=== PATIENT | male | born 1945 | race Caucasian/White ===

== ENCOUNTER 2016-03-07 12:49 | Day surgery (SDC) | payer MEDICARE, OTHER ==
[~2016-03-07] VITALS: Ht 185.4 cm; Wt 96.4 kg
[~2016-03-07 12:49] MED LIST: ALEVE 220MG220 MG PO; ASPIRIN 32325 MG/TAB PO; ASPIRIN E.C. 8181 MG PO; CALCIUM/MAGNESI1 T17 PO; COREG 3.123.125 MG/T PO; FLOMAX0.4 MG PO; LYRICA 25MG CAP25 MG PO; MEDROL 4MG DOSPA4 MG PO; NITROSTAT0.4 MG/TAB SL; NORCO 325 MG-51 TAB PO; PERCOCET 5/321 UDTAB PO; PRILOSEC 20MG20 MG PO; QUESTRAN4 GM/9 GM PO; SYNTHROID0.075 MG/T PO; TIROSINT100 MC1 PO; ULTRAM 50MG TAB50 MG PO; ULTRAM50 MG PO; VALIUM 5MG T5 MG/TAB PO; VICODIN PO; VITAMIN C BUFF500 MG PO; VITAMIN C500 MG PO
[2016-03-07 13:07] VITALS: BP 140/93; PULSE 81; TEMP 99
[2016-03-07] MEDS ORDERED: SYNTHROID0.125 MG/T PO (13:38)
[2016-03-07] MEDS ORDERED: COREG 6.256.25 MG/TA PO (13:38)
[2016-03-07] MEDS ORDERED: PROBIOTIC FORMU1 CAP PO (13:39)
[2016-03-07] MEDS ORDERED: LYRICA 50MG CAP50 MG PO (13:39)
[2016-03-07] MEDS ORDERED: VITAMIN C500 MG PO (13:39)
[2016-03-07] MEDS ORDERED: ALEVE 220MG220 MG PO (13:40)
[2016-03-07] MEDS ORDERED: ZYRTEC 10MG10 MG PO (13:40)
[2016-03-07 15:30] VITALS: BP 121/78; PULSE 85; TEMP 98.3
[2016-03-07 15:45] VITALS: BP 121/80; PULSE 73
[2016-03-07 16:00] VITALS: BP 105/75; PULSE 71
[2016-03-07 16:15] VITALS: BP 110/70; PULSE 72
== END 2016-03-07 16:32 | disposition home or self-care (01) ==
LOC: SDCO 12:49
DX: Z86.010 Personal history of colon polyps (principal); K21.9 Gastro-esophageal reflux disease without esophagitis; R19.7 Diarrhea, unspecified; K57.30 Diverticulosis of large intestine without perforation or abscess without bleeding; R11.0 Nausea
CPT/HCPCS: OP; J2250; J3010; J7030

== ENCOUNTER 2018-04-02 13:16 | Outpatient (RCR) | payer MEDICARE, OTHER ==
[~2018-04-02 13:16] MED LIST changes: +COREG 6.256.25 MG/TA PO; +LYRICA 50MG CAP50 MG PO; +PROBIOTIC FORMU1 CAP PO; +SYNTHROID0.125 MG/T PO; +ZYRTEC 10MG10 MG PO
[2018-04-30] MEDS ORDERED: QUESTRAN4 GM/9 GM PO (14:47)
[2018-04-30] MEDS ORDERED: CALCIUM-MAGNES1 EAC1 PO (14:49)
[2018-06-05] MEDS ORDERED: COREG 3.123.125 MG/T PO (10:44)
[2018-06-05] MEDS ORDERED: SYNTHROID0.137 MG PO (10:45)
== END 2018-06-10 10:25 | disposition home or self-care (01) ==
LOC: MKS.ESL.PT 13:16
DX: M54.5 Low back pain (principal)

== ENCOUNTER → 2018-04-23 | Outpatient (CLI) | payer MEDICARE, OTHER | LOC: COL.RAD 09:30 | DX: Z01.812 Encounter for preprocedural laboratory examination (principal); N40.0 Benign prostatic hyperplasia without lower urinary tract symptoms; R68.89 Other general symptoms and signs; R91.8 Other nonspecific abnormal finding of lung field; K57.30 Diverticulosis of large intestine without perforation or abscess without bleeding; Z90.49 Acquired absence of other specified parts of digestive tract | CPT/HCPCS: A9503; Q9967 ==

== ENCOUNTER 2018-04-30 13:45 | Day surgery (SDC) | payer MEDICARE, OTHER ==
[~2018-04-30] VITALS: Ht 185.4 cm; Wt 97.5 kg
[2018-04-30 14:29] VITALS: BP 123/81; PULSE 82; TEMP 97.9
[2018-04-30] MEDS ORDERED: QUESTRAN4 GM/9 GM PO (14:47)
[2018-04-30] MEDS ORDERED: CALCIUM-MAGNES1 EAC1 PO (14:49)
[2018-04-30 15:45] VITALS: BP 117/84; PULSE 84; TEMP 97.6
--- NOTE | 2018-04-30 15:45 | NUR ---
Patient rolled back to bay 4. Alert and oriented. Denies pain, and nausea. Vital signs obtained, WNL. Requesting soda and muffin at this time. Tolerating well. Call toth within reach, Lise at bedside, will continue to monitor.
[2018-04-30 16:00] VITALS: BP 119/89; PULSE 84
[2018-04-30 16:15] VITALS: BP 113/82; PULSE 72
[2018-04-30 16:30] VITALS: BP 116/75; PULSE 79
--- NOTE | 2018-04-30 17:00 | NUR ---
Patient states he is ready to go home. Discharge instructions reviewed with patient and . All questions answered. Patient wheeled down to lobby by this RN. To be driven home by Lise.
== END 2018-04-30 17:05 | disposition home or self-care (01) ==
LOC: SDCO 13:45
DX: D12.0 Benign neoplasm of cecum (principal); D12.5 Benign neoplasm of sigmoid colon; K64.1 Second degree hemorrhoids; K57.30 Diverticulosis of large intestine without perforation or abscess without bleeding; Z86.010 Personal history of colon polyps; Z79.82 Long term (current) use of aspirin; Z79.899 Other long term (current) drug therapy; Z80.0 Family history of malignant neoplasm of digestive organs; Z90.49 Acquired absence of other specified parts of digestive tract; Z90.79 Acquired absence of other genital organ(s); K58.2 Mixed irritable bowel syndrome; E07.9 Disorder of thyroid, unspecified; F32.9 Major depressive disorder, single episode, unspecified; R01.1 Cardiac murmur, unspecified
CPT/HCPCS: J2250; J3010

== ENCOUNTER 2018-05-14 14:28 | Inpatient (IN) | payer MEDICARE, OTHER ==
[~2018-05-14] VITALS: Ht 188 cm; Wt 95.5 kg
[~2018-05-14 14:28] MED LIST changes: +CALCIUM-MAGNES1 EAC1 PO
[2018-06-05] VITALS (10 sets, daily range): BP systolic 97–136; BP diastolic 59–90; PULSE 65–74; TEMP 97.4–98.7
[2018-06-05] MEDS ORDERED: COREG 3.123.125 MG/T PO (10:44)
[2018-06-05] MEDS ORDERED: SYNTHROID0.137 MG PO (10:45)
--- NOTE | 2018-06-05 11:00 | NUR ---
TO RM AT 1006- CALL LIGHT IN REACH ALERT ORIENTED X3, VERBALIZED UNDERSTANDING AND SIGNED CONSENT.
--- NOTE | 2018-06-05 11:14 | NUR ---
TO RM AT 1006- CALL LIGHT IN REACH AND SON AT BEDSIDE.
--- NOTE | 2018-06-05 23:05 | NUR ---
Patient resting in bed upon assessment. Requests to have something small to eat. Dr. John notified and stated it was okay for him to have a regular diet, but to take it slow. Patient educated. No discomfort after eating a small sandwich and applesauce. Urinary catheter present draining jennifer urine. Dr. John notified that his output is low. Ordered to continue fluids running all night and into tomorrow morning, until he rounds. Dressings to abdomen clean, dry, and intact. Drain noted to left lower abdomen. Draining red. States some discomfort to tip of penis. No other pain. Patient resting in bed with eyes closed at this time.
--- NOTE | 2018-06-06 02:29 | NUR ---
Sibley catheter emptied 150ml of tea-colored/jennifer urine. Fluids currently running at 125ml/hr. Patient encouraged to drink more fluids. Requested fresh ice water and some jello. Will continue to monitor closely.
[2018-06-06 06:56] LABS: BASO # 0.1 (0.0-0.2); BASO % 0.6 % (0.0-2.0); EOS # 0.1 (0.0-0.7); EOS % 1.6 % (0-4.0); GRAN # 5.2 (1.4-6.5); GRAN % 65.1 % (42.2-75.2); HEMOGLOBIN 10.6 g/dl (13.5-18.0); LYMPH # 1.9 (1.2-3.4); LYMPH % 24.1 % (20.0-51.0); MEAN CELL VOLUME 90 fl (80.0-100.0); MEAN CORPUSCULAR HEMOGLOBIN 30 pg (27.0-31.0); MEAN CORPUSCULAR HGB CONC 33 g/dl (33.0-37.0); MEAN PLATELET VOLUME 10.2 fl (7.4-10.4); MONO # 0.7 (0.1-0.6); MONO % 8.3 % (1.7-9.3); PLATELET COUNT 237 K/mm3 (130-400); RED BLOOD COUNT 3.59 M/mm3 (4.20-5.60); REDCELL DISTRIBUTION WIDTH-CV 13.2 % (11.5-14.5)
[2018-06-06 06:59] LABS: HEMATOCRIT 32.2 % (42.0-52.0)
[2018-06-06 07:05] LABS: CALCIUM 7.8 mg/dL (8.4-10.2); CREATININE, serum 1.11 (0.66-1.25); POTASSIUM 3.7 mmol/L (3.4-5.0)
[2018-06-06 08:57] VITALS: BP 98/54; PULSE 69; TEMP 98
--- NOTE | 2018-06-06 10:44 | NUR ---
SW met with patient about discharge planning. Patient lives independently at home with his and plans to return there when he is discharged. Patient's PCP is Dr Morfin and he obtains prescriptions from [facility] pharmacy. Patient does not use any home health services or DME in the home. Patient has a DPOA and a copy is in the EMR. SW does not anticipate any discharge needs.
[2018-06-06 12:03] VITALS: BP 103/55; PULSE 63; TEMP 98.5
[2018-06-06 14:34] LABS: HEMATOCRIT 34.5 % (42.0-52.0); HEMOGLOBIN 11.3 g/dl (13.5-18.0)
[2018-06-06 17:00] VITALS: BP 127/71; PULSE 74; TEMP 97.8
--- NOTE | 2018-06-06 20:00 | NUR ---
Patient up in recliner at bedside watching television. Fluids continue to run to left wrist. No s/sx of infection or infiltration. ELIZABETH drain site noted to have drainage. Dressing removed, site cleansed, and new dressing applied. Sibley catheter draining clear yellow urine. Denies pain except discomfort when walking at the tip of his penis. Fresh ice water given.
[2018-06-06 21:13] VITALS: BP 116/61; PULSE 73; TEMP 97.8
--- NOTE | 2018-06-07 00:03 | NUR ---
Patient resting in bed watching television. States he is having troubles falling asleep due to the IV pump. Covered with blanket to try to cut down on the noise. Water pitcher filled. Denies any further needs.
[2018-06-07 01:07] VITALS: BP 109/70; PULSE 67; TEMP 97.8
[2018-06-07 05:27] VITALS: BP 130/41; PULSE 85; TEMP 97.6
[2018-06-07 05:31] VITALS: BP 129/84; PULSE 73; TEMP 97.8
--- NOTE | 2018-06-07 06:24 | NUR ---
Patient rested well throughout the night. Currently attempting to have a bowel movement. Report to be given to oncoming nurse.
[2018-06-07 08:00] VITALS: BP 126/75; PULSE 77; TEMP 98.4
[2018-06-07 08:00] LABS: BASO % 0.3 % (0.0-2.0); EOS # 0.3 (0.0-0.7); GRAN # 5.5 (1.4-6.5); GRAN % 72.4 % (42.2-75.2); HEMOGLOBIN 11.5 g/dl (13.5-18.0); LYMPH # 1.2 (1.2-3.4); LYMPH % 15.4 % (20.0-51.0); MEAN CELL VOLUME 90 fl (80.0-100.0); MEAN CORPUSCULAR HEMOGLOBIN 30 pg (27.0-31.0); MEAN CORPUSCULAR HGB CONC 33 g/dl (33.0-37.0); MEAN PLATELET VOLUME 9.6 fl (7.4-10.4); MONO # 0.6 (0.1-0.6); MONO % 7.6 % (1.7-9.3); PLATELET COUNT 239 K/mm3 (130-400); RED BLOOD COUNT 3.85 M/mm3 (4.20-5.60); REDCELL DISTRIBUTION WIDTH-CV 13.3 % (11.5-14.5)
--- NOTE | 2018-06-07 08:00 | NUR ---
Patient in recliner resting. Alert and oriented x 3. Shift assessment complete. Lap sites x5 with edges well approximated with swiftset. ELIZABETH to LLQ to bulb suction with reddish drainage present. Gauze dressing to ELIZABETH site with drainage. Sibley cathter to dependent drainage with clear jennifer urine present in bag. Denies pain or further needs at this time.
[2018-06-07 08:05] LABS: HEMATOCRIT 34.8 % (42.0-52.0)
[2018-06-07 08:06] LABS: CALCIUM 8.1 mg/dL (8.4-10.2); CREATININE, serum 1.01 (0.66-1.25); POTASSIUM 3.9 mmol/L (3.4-5.0)
--- NOTE | 2018-06-07 10:39 | NUR ---
First visit from the sign language instructor. No needs right now.
[2018-06-07 11:30] VITALS: BP 123/67; PULSE 81; TEMP 97.7
--- NOTE | 2018-06-07 11:37 | NUR ---
Verified with Dr. John. Ok to pull ELIZABETH drain, patient had 50ml of bloody drainage out within [address] John, pull ELIZABETH drain
--- NOTE | 2018-06-07 11:40 | NUR ---
ELIZABETH to left lower quadrent discontinued. Patient tolerated procedure well. Gauze and tegaderm dressing applied to site.
--- NOTE | 2018-06-07 14:00 | NUR ---
Discharge education provided. Patient educated on chen catheter care and use of leg bag. Instructed on showering and not scrubbing incision sites. Educated on signs and symptoms of infection and when to call provider. Denies pain or further needs at this time. Patient ambulated out with family and surgical staff.
== END 2018-06-07 14:00 | disposition home or self-care (01) | DRG 708 ==
LOC: SURG 06-05 09:54 → INPTSU 06-05 09:54 → SURG 06-05 11:45
PROVIDERS: ADMIT Urology
PROC: 07BC4ZX Excision of Pelvis Lymphatic, Percutaneous Endoscopic Approach, Diagnostic (ICD-10-PCS; 2018-06-05)
PROC: 8E0W4CZ Robotic Assisted Procedure of Trunk Region, Percutaneous Endoscopic Approach (ICD-10-PCS; 2018-06-05)
PROC: 0VT04ZZ Resection of Prostate, Percutaneous Endoscopic Approach (ICD-10-PCS; principal; 2018-06-05 11:45)
DX: C61 Malignant neoplasm of prostate (principal); E03.9 Hypothyroidism, unspecified; I10 Essential (primary) hypertension
CPT/HCPCS: J0690; J1100; J1170; J1885; J2250; J2405; J2704; J3010; J7030; J7120

== ENCOUNTER 2018-11-19 08:46 | Outpatient (RCR) | payer MEDICARE, OTHER ==
[~2018-11-19 08:46] MED LIST changes: +SYNTHROID0.137 MG PO
== END 2019-02-17 | disposition still patient (30) ==
LOC: MKS.ESL.PT
DX: Z01.818 Encounter for other preprocedural examination (principal); M16.12 Unilateral primary osteoarthritis, left hip

== ENCOUNTER 2019-01-12 14:00 | Outpatient (RCR) | payer MEDICARE, OTHER | END 2019-03-08 | disposition home or self-care (01) | LOC: MKS.ESL.PT | DX: Z47.1 Aftercare following joint replacement surgery (principal); Z96.642 Presence of left artificial hip joint ==

== ENCOUNTER 2020-07-18 06:37 | Emergency (ER) | payer MEDICARE ==
[~2020-07-18] VITALS: Ht 188 cm; Wt 97.7 kg
[~2020-07-18 06:37] MED LIST changes: +PROBIOTIC DIGE1 EACH PO; -PROBIOTIC FORMU1 CAP PO; -SYNTHROID0.137 MG PO; +SYNTHROID0.175 MG PO
[2020-07-18 06:44] VITALS: TEMP 96.4
[2020-07-18 06:58] LABS: BASO % 0.3 % (0.0-2.0); EOS # 0.2 (0.0-0.7); EOS % 2.1 % (0-4.0); GRAN # 5.9 (1.4-6.5); GRAN % 62.6 % (42.2-75.2); HEMATOCRIT 42.4 % (42.0-52.0); HEMOGLOBIN 13.9 g/dl (13.5-18.0); LYMPH # 2.4 (1.2-3.4); LYMPH % 25.9 % (20.0-51.0); MEAN CELL VOLUME 92 fl (80.0-100.0); MEAN CORPUSCULAR HEMOGLOBIN 30 pg (27.0-31.0); MEAN CORPUSCULAR HGB CONC 33 g/dl (33.0-37.0); MEAN PLATELET VOLUME 9.2 fl (7.4-10.4); MONO # 0.8 (0.1-0.6); MONO % 8.6 % (1.7-9.3); PLATELET COUNT 308 K/mm3 (130-400); RED BLOOD COUNT 4.62 M/mm3 (4.20-5.60); REDCELL DISTRIBUTION WIDTH-CV 12.8 % (11.5-14.5)
[2020-07-18 07:07] LABS: COLLECTION METHOD CLEAN CATCH
[2020-07-18 07:08] LABS: ALBUMIN 3.9 gm/dL (3.5-5.0); BILIRUBIN,TOTAL 0.5 mg/dL (0.0-1.0); CALCIUM 8.8 mg/dL (8.4-10.2); CREATININE, serum 1.03 (0.66-1.25); POTASSIUM 4.1 mmol/L (3.4-5.0); TOTAL PROTEIN 6.9 gm/dL (6.4-8.2)
[2020-07-18 07:18] LABS: MUCOUS Present /lpf; PH 5 (5-8); SQUAMOUS EPITHELIAL 0-2 /hpf; URINE APPEARANCE Cloudy; URINE BACTERIA Rare /hpf; URINE BILIRUBIN Negative (NEGATIVE); URINE BLOOD 3+ (NEGATIVE); URINE COLOR Yellow; URINE GLUCOSE Negative (NEGATIVE); URINE KETONE Negative (NEGATIVE); URINE LEUKOCYTE ESTERASE Negative (NEGATIVE); URINE NITRATE Negative (NEGATIVE); URINE PROTEIN(semi-quant) 1+ (NEGATIVE); URINE RBC >50 /hpf; URINE UROBILINOGEN Negative (NEGATIVE)
[2020-07-18] MEDS ORDERED: NORCO 325 MG-51 TAB PO (08:17)
[2020-07-18 08:28] VITALS: BP 140/92; PULSE 77
== END 2020-07-18 08:28 | disposition home or self-care (01) ==
LOC: COL.ER 06:37
PROVIDERS: Emergency Medicine
DX: N13.2 Hydronephrosis with renal and ureteral calculous obstruction (principal); I10 Essential (primary) hypertension; Z79.899 Other long term (current) drug therapy
CPT/HCPCS: J1885; J2270; J2405; J7120; Q9967

== ENCOUNTER 2020-09-23 07:20 | Emergency (ER) | payer MEDICARE, OTHER ==
[~2020-09-23] VITALS: Ht 185.4 cm; Wt 97.7 kg
[2020-09-23 07:25] VITALS: TEMP 97.8
[2020-09-23 07:37] LABS: COLLECTION METHOD CLEAN CATCH
[2020-09-23 07:55] LABS: BASO # 0.1 (0.0-0.2); BASO % 0.4 % (0.0-2.0); EOS # 0.1 (0.0-0.7); EOS % 0.6 % (0-4.0); GRAN # 11.7 (1.4-6.5); HEMATOCRIT 44.6 % (42.0-52.0); HEMOGLOBIN 14.8 g/dl (13.5-18.0); LYMPH # 1.4 (1.2-3.4); LYMPH % 9.7 % (20.0-51.0); MEAN CELL VOLUME 93 fl (80.0-100.0); MEAN CORPUSCULAR HEMOGLOBIN 31 pg (27.0-31.0); MEAN CORPUSCULAR HGB CONC 33 g/dl (33.0-37.0); MONO % 6.7 % (1.7-9.3); PLATELET COUNT 285 K/mm3 (130-400); REDCELL DISTRIBUTION WIDTH-CV 13.5 % (11.5-14.5)
[2020-09-23 08:08] LABS: MUCOUS Present /lpf; PH 5 (5-8); SQUAMOUS EPITHELIAL 0-2 /hpf; URINE APPEARANCE Clear; URINE BACTERIA None Seen /hpf; URINE BILIRUBIN Negative (NEGATIVE); URINE BLOOD 3+ (NEGATIVE); URINE COLOR Yellow; URINE GLUCOSE Negative (NEGATIVE); URINE KETONE Negative (NEGATIVE); URINE LEUKOCYTE ESTERASE Negative (NEGATIVE); URINE NITRATE Negative (NEGATIVE); URINE PROTEIN(semi-quant) Negative (NEGATIVE); URINE UROBILINOGEN Negative (NEGATIVE); URINE WBC 0-2 /hpf
[2020-09-23 08:09] LABS: ALBUMIN 3.8 gm/dL (3.5-5.0); BILIRUBIN,TOTAL 0.5 mg/dL (0.0-1.0); CALCIUM 8.9 mg/dL (8.4-10.2); CREATININE, serum 1.15 (0.66-1.25); POTASSIUM 4.3 mmol/L (3.4-5.0); TOTAL PROTEIN 6.5 gm/dL (6.4-8.2)
[2020-09-23] MEDS ORDERED: ZOFRAN ODT4 MG PO (11:36)
[2020-09-23] MEDS ORDERED: PERCOCET 325 MG1 TA2 PO (11:36)
[2020-09-23] MEDS ORDERED: FLOMAX 0.40.4 MG/CAP PO (11:36)
[2020-09-23 12:05] VITALS: BP 149/94; PULSE 71
== END 2020-09-23 12:05 | disposition home or self-care (01) ==
LOC: COL.ER 07:20
PROVIDERS: Personal Emergency Response Attendant
DX: N13.2 Hydronephrosis with renal and ureteral calculous obstruction (principal)
CPT/HCPCS: J2270; J2405; J7030; Q9967

== ENCOUNTER 2020-09-25 08:32 | Day surgery (SDC) | payer MEDICARE, OTHER ==
[2020-09-25] VITALS (7 sets, daily range): BP systolic 118–158; BP diastolic 64–88; PULSE 44–88; TEMP 98.2–99.1
[~2020-09-25 08:32] MED LIST changes: +FLOMAX 0.40.4 MG/CAP PO; +PERCOCET 325 MG1 TA2 PO; +ZOFRAN ODT4 MG PO
[2020-09-25] MEDS ORDERED: VITAMIN D250 MCG PO (09:07)
--- NOTE | 2020-09-25 09:50 | NUR ---
Patient is going to surgery. IV started to left wrist. IVF's infusing. Consent signed and on chart. Patients is staying in the room. Home medicaiton list updated in the computer.
--- NOTE | 2020-09-25 11:25 | NUR ---
Patient is back from surgery. He is alert and oriented. Explained the plan for discharging home. They are looking at the menu to order lunch. Vital sings are stable. Patient denies pain and nausea. No other changes at this time. Call light within reach.
--- NOTE | 2020-09-25 13:50 | NUR ---
Patient is discharging home. He was able to void, he stated having some burning with voiding. Explained that will get better. Discharge instructions discussed with patient. Patient already has pain medications at home. Copies of discharge instructions sent with patient. Patient walked by Antonieta FERRERA.
== END 2020-09-25 13:50 | disposition home or self-care (01) ==
LOC: SDCO 08:32 → SURG 08:33 → SDCO 13:50
DX: N20.1 Calculus of ureter (principal); I10 Essential (primary) hypertension; G25.81 Restless legs syndrome; M19.90 Unspecified osteoarthritis, unspecified site; M54.9 Dorsalgia, unspecified; G89.29 Other chronic pain; Z85.46 Personal history of malignant neoplasm of prostate; Z90.79 Acquired absence of other genital organ(s); Z79.82 Long term (current) use of aspirin; Z79.899 Other long term (current) drug therapy; Z90.89 Acquired absence of other organs; Z90.49 Acquired absence of other specified parts of digestive tract
CPT/HCPCS: OP; C1769; C2617; J0690; J1100; J1885; J2270; J2405; J2704; J3010; J7030; Q9967

== ENCOUNTER → 2021-09-07 | Outpatient (CLI) | payer MEDICARE, OTHER ==
[~2021-09-07] MED LIST changes: +VITAMIN D250 MCG PO
== END ==
LOC: COL.RAD 07:04
DX: I77.810 Thoracic aortic ectasia (principal); I10 Essential (primary) hypertension; J98.11 Atelectasis
CPT/HCPCS: Q9967

== ENCOUNTER 2023-10-17 11:15 | Outpatient (RCR) | payer MEDICARE ==
[~2023-10-17 11:15] MED LIST changes: +B-121000 MCG PO; +FOLIC ACID 11 MG/TA1 PO; +HYGROTON 2525 MG/TAB PO; +TYLENOL 325MG325 MG PO
== END 2023-10-19 | disposition home or self-care (01) ==
LOC: WSPT
DX: M48.061 Spinal stenosis, lumbar region without neurogenic claudication (principal)